=== PATIENT | male | born 1995 | race Asian ===

== ENCOUNTER → 2024-06-22 | Outpatient (CLI) | payer OTHER ==
[2024-06-22 14:17] LABS: BASO # 0.1 10^3/uL (0.0-0.2); BASO % 0.7 % (0.0-1.0); EOS # 0.1 10^3/uL (0.0-0.5); HEMATOCRIT 47.9 % (42.0-52.0); HEMOGLOBIN 16.2 g/dl (13.5-17.5); LYMPH # 1.3 10^3/uL (1.5-5.0); LYMPH % 19.4 % (24.0-44.0); MEAN CORPUSCULAR HEMOGLOBIN 30.1 pg (27.0-33.0); MEAN CORPUSCULAR HGB CONC 33.8 g/dl (32.0-36.5); MEAN CORPUSCULAR VOLUME 88.9 fl (80.0-96.0); MONO # 0.5 10^3/uL (0.0-0.8); MONO % 7.2 % (2.0-8.0); NEUTROPHILS # 4.8 10^3/uL (1.5-8.5); NEUTROPHILS % 71.3 % (36.0-66.0); PLATELET COUNT, AUTOMATED 226 10^3/uL (150-450); RED BLOOD COUNT 5.39 10^6/uL (4.30-6.10); WHITE BLOOD COUNT 6.7 10^3/uL (4.0-10.0)
[2024-06-22 14:46] LABS: ALBUMIN 4.2 G/DL (3.2-5.2); ALKALINE PHOSPHATASE 86 U/L (46-116); ALT/SGPT 21 U/L (7.0-40); AST/SGOT 14 U/L (<34); BLOOD UREA NITROGEN 11 MG/DL (9-23); CALCIUM LEVEL 9.3 MG/DL (8.5-10.1); CARBON DIOXIDE LEVEL 29 MMOL/L (20-31); CHLORIDE LEVEL 109 MMOL/L (98-107); CHOLESTEROL LEVEL 163 MG/DL (<200); CHOLESTEROL RISK RATIO 3.34 (<5); CREATININE FOR GFR 0.99 MG/DL (0.70-1.30); GLOMERULAR FILTRATION RATE > 60.0 (>60); GLUCOSE, FASTING 93 MG/DL (60-100); HDL CHOLESTEROL 48.7 MG/DL (>40); LDL CHOLESTEROL 83.5 MG/DL (<100); MAGNESIUM LEVEL 2.2 MG/DL (1.8-2.4); NON-HDL-C 114.3 MG/DL; POTASSIUM SERUM 3.9 MMOL/L (3.5-5.1); SODIUM LEVEL 142 MMOL/L (136-145); TOTAL PROTEIN 7.4 G/DL (5.7-8.2); TRIGLYCERIDES LEVEL 154 MG/DL (<150)
[2024-06-22 14:48] LABS: THYROID STIMULATING HORMONE 1.131 uIU/ML (0.55-4.78)
[2024-06-24 01:47] LABS: LDL DIRECT 97 mg/dL (<100)
== END ==
LOC: M LAB 13:43
PROVIDERS: ATTEND Internal Medicine Cardiovascular Disease
DX: Z13.220 Encounter for screening for lipoid disorders (principal); R00.2 Palpitations; I50.9 Heart failure, unspecified; I48.91 Unspecified atrial fibrillation

== ENCOUNTER → 2024-09-10 | Outpatient (CLI) | payer OTHER | LOC: M CARPUL 10:31 | PROVIDERS: ATTEND Physician Assistant | DX: R55 Syncope and collapse (principal) ==

== ENCOUNTER → 2024-10-29 | Outpatient (CLI) | payer OTHER ==
[~2024-10-29] MED LIST: METHACHOLINE KIT (6 VIAL.NEB PREMIX) INH ONE
== END ==
LOC: M CARPUL 07:51
PROVIDERS: ATTEND Physician Assistant
DX: R55 Syncope and collapse (principal); R00.2 Palpitations
CPT/HCPCS: 94070; J7674

== ENCOUNTER → 2024-11-12 | Outpatient (CLI) | payer OTHER | LOC: M RAD 06:50 | PROVIDERS: ATTEND Student in an Organized Health Care Education/Training Program | DX: R06.00 Dyspnea, unspecified (principal) ==

== ENCOUNTER 2024-12-20 13:13 | Inpatient (IN) | payer OTHER ==
[~2024-12-20] VITALS: Ht 172.7 cm; Wt 88.5 kg
[2024-12-20] MEDS ORDERED: FLUO-365 PO (13:19)
[2024-12-20 14:49] LABS: HEMATOCRIT 51.6 % (42.0-52.0); HEMOGLOBIN 17.5 g/dl (13.5-17.5); MEAN CORPUSCULAR HEMOGLOBIN 29.9 pg (27.0-33.0); MEAN CORPUSCULAR HGB CONC 33.9 g/dl (32.0-36.5); MEAN CORPUSCULAR VOLUME 88.2 fl (80.0-96.0); PLATELET COUNT, AUTOMATED 228 10^3/uL (150-450); RED BLOOD COUNT 5.85 10^6/uL (4.30-6.10); WHITE BLOOD COUNT 7.4 10^3/uL (4.0-10.0)
[2024-12-20 15:13] LABS: AMPHETAMINES LEVEL URINE NEGATIVE (NEGATIVE); BARBITURATES URINE NEGATIVE (NEGATIVE); BENZODIAZEPINES URINE NEGATIVE (NEGATIVE); CANNABINOIDS URINE NEGATIVE (NEGATIVE); COCAINE METABOLITE URINE NEGATIVE (NEGATIVE); METHADONE URINE NEGATIVE (NEGATIVE); OPIATES URINE NEGATIVE (NEGATIVE); PHENCYCLIDINE URINE NEGATIVE (NEGATIVE)
[2024-12-20 15:15] LABS: ETHYL ALCOHOL (ETHANOL) < 0.003 % (0.000-0.010)
[2024-12-20 15:17] LABS: ALBUMIN 4.2 G/DL (3.2-5.2); ALKALINE PHOSPHATASE 83 U/L (40-129); ALT/SGPT 39 U/L (7.0-40); AST/SGOT 43 U/L (<34); BILIRUBIN,DIRECT 0.3 MG/DL (<0.4); BILIRUBIN,TOTAL 0.9 MG/DL (0.3-1.2); BLOOD UREA NITROGEN 8 MG/DL (9-23); CALCIUM LEVEL 9.4 MG/DL (8.5-10.1); CARBON DIOXIDE LEVEL 25 MMOL/L (20-31); CHLORIDE LEVEL 105 MMOL/L (98-107); CREATININE FOR GFR 1.05 MG/DL (0.70-1.30); GLOMERULAR FILTRATION RATE > 60.0 (>60); GLUCOSE, FASTING 86 MG/DL (60-100); POTASSIUM SERUM 4.3 MMOL/L (3.5-5.1); SALICYLATE LEVEL < 3.0 MG/DL (<30); SODIUM LEVEL 141 MMOL/L (136-145); TOTAL PROTEIN 7.5 G/DL (5.7-8.2)
[2024-12-20 15:19] LABS: THYROID STIMULATING HORMONE 1.921 uIU/ML (0.55-4.78)
[2024-12-20] MEDS ORDERED: MAALOX 30 ML SUSP *UDC PO PRN (19:55)
[2024-12-20] MEDS ORDERED: MOM 30ML SUSPENSION UDC PO PRN (19:55)
[2024-12-20] MEDS ORDERED: IBUPROFEN 400MG TAB PO PRN (19:55)
[2024-12-20] MEDS ORDERED: ACETAMINOPHEN 325 MG TAB PO PRN (19:55)
[2024-12-20 20:48] VITALS: BP 111/59; TEMP 98; O2SAT 100
[2024-12-21 07:03] VITALS: BP 149/85; TEMP 97; O2SAT 97
[2024-12-21] MEDS ORDERED: HOME MED LIST COMPLETE! XX SCH (08:15)
[2024-12-21] MEDS: FLUoxetine 20MG CAP PO SCH (10:57)
[2024-12-21] MEDS: diphenhydrAMINE 25MG CAP PO PRN (13:20)
[2024-12-21 17:19] VITALS: BP 136/96; TEMP 97.4; O2SAT 98
[2024-12-22 06:37] VITALS: BP 152/86; TEMP 98.3; O2SAT 98
[2024-12-22 15:47] VITALS: BP 121/76; TEMP 97; O2SAT 96
[2024-12-23 06:32] VITALS: BP 126/82; TEMP 98; O2SAT 100
[2024-12-23] MEDS: NICOTINE POLACRILEX 2 MG GUM PO PRN (15:33)
[2024-12-23 15:39] VITALS: BP 144/76; TEMP 97.4; O2SAT 96
[2024-12-24 06:28] VITALS: BP 137/83; TEMP 97.5; O2SAT 98
[2024-12-24 16:08] VITALS: BP 138/94; TEMP 97.8; O2SAT 99
[2024-12-25] MEDS: FLUoxetine 10 MG CAP PO ONE (14:14)
[2024-12-25 15:28] VITALS: BP 134/87; TEMP 97.9; O2SAT 96
[2024-12-26 06:34] VITALS: BP 149/89; TEMP 97.6; O2SAT 100
[2024-12-26] MEDS: FLUoxetine 10 MG CAP PO SCH (08:59)
[2024-12-26 16:44] VITALS: BP 132/88; TEMP 97.4; O2SAT 97
[2024-12-26] MEDS: traZODone 50 MG TAB PO PRN (22:16)
[2024-12-27 15:30] VITALS: BP 132/83; TEMP 97; O2SAT 100
[2024-12-28] MEDS ORDERED: FLUO-365 PO (05:41)
[2024-12-28] MEDS ORDERED: HYDR-3363 PO (05:41)
[2024-12-28 06:53] VITALS: BP 126/90; TEMP 97; O2SAT 99
[2024-12-28] MEDS: FLUoxetine 20MG CAP PO SCH (08:05)
== END 2024-12-28 10:38 | disposition home or self-care (01) | DRG 885 ==
LOC: M ED 13:13 → M ED INP 19:54 → M PSY 20:59
PROVIDERS: ADMIT Psychiatry & Neurology Neurology; ATTEND Psychiatry & Neurology Neurology
DX: F33.1 Major depressive disorder, recurrent, moderate (principal); R45.851 Suicidal ideations; F41.9 Anxiety disorder, unspecified

== ENCOUNTER → 2025-02-27 | Outpatient (REF) | payer OTHER ==
[~2025-02-27] MED LIST changes: +FLUO-365 PO; +HYDR-3363 PO; -METHACHOLINE KIT (6 VIAL.NEB PREMIX) INH ONE
== END ==
LOC: M SMT 13:27
PROVIDERS: ATTEND Urology
DX: Z30.2 Encounter for sterilization (principal)

== ENCOUNTER → 2025-04-24 | Outpatient (REF) | payer OTHER ==
[2025-04-24 11:10] LABS: SEMEN APPEARANCE OPAQUE (OPAQUE); SEMEN VISCOSITY LIQUID (LIQUID); SEMEN VOLUME 1.2 ml (2.0-5.0); WBC CONCENTRATION <=1 M/ml (<=1 M/ml)
== END ==
LOC: M SMT 10:30
PROVIDERS: ATTEND Urology
DX: Z30.8 Encounter for other contraceptive management (principal)

== ENCOUNTER → 2025-08-06 | Outpatient (REF) | payer OTHER ==
[~2025-08-06] MED LIST changes: +IBUP-354 PO; +METH-1165 PO
== END ==
LOC: M LAB REF 15:09
PROVIDERS: ATTEND Nurse Practitioner Family
DX: R14.0 Abdominal distension (gaseous) (principal); R19.4 Change in bowel habit

== ENCOUNTER 2025-08-08 00:14 | Emergency (ER) | payer OTHER ==
[~2025-08-08] VITALS: Ht 172.7 cm; Wt 81.8 kg
[~2025-08-08 00:14] MED LIST changes: -IBUP-354 PO; -METH-1165 PO
[2025-08-08] MEDS: LIDOCAINE 5% PATCH TD ONE (05:51)
[2025-08-08] MEDS: ACETAMINOPHEN 500 MG TAB PO ONE (05:51)
[2025-08-08 06:47] LABS: APPEARANCE, URINE CLEAR (CLEAR); BACTERIA, URINE AUTO NEGATIVE (NEGATIVE); BILIRUBIN, URINE AUTO NEGATIVE (NEGATIVE); BLOOD, URINE BLOOD NEGATIVE (NEGATIVE); GLUCOSE, URINE (UA) AUTO NEGATIVE (NEGATIVE); KETONE, URINE AUTO NEGATIVE (NEGATIVE); LEUKOCYTE ESTERASE, URINE AUTO NEGATIVE (NEGATIVE); MUCUS, URINE SMALL (NEGATIVE); NITRITE, URINE AUTO NEGATIVE (NEGATIVE); PROTEIN, URINE AUTO 1+ mg/dL (NEGATIVE); RBC, URINE AUTO 1 /HPF (0-3); SPECIFIC GRAVITY URINE AUTO 1.030 (1.002-1.035); SQUAMOUS EPITHELIAL CELL UR AU 0 /HPF (0-6); UROBILINOGEN, URINE AUTO 2.0 mg/dL (0.0-2.0); WBC, URINE AUTO 3 /HPF (0-3)
[2025-08-08] MEDS ORDERED: METH-1165 PO (07:24)
[2025-08-08] MEDS ORDERED: IBUP-354 PO (07:24)
[2025-08-08] MEDS: KETOROLAC 30 MG/ML 1 ML VIAL IV ONE (07:35)
[2025-08-08 07:55] VITALS: BP 109/74; TEMP 97.8; O2SAT 96
== END 2025-08-08 08:02 | disposition home or self-care (01) ==
LOC: M ED 00:14
DX: M54.50 Low back pain, unspecified (principal); Z79.899 Other long term (current) drug therapy
CPT/HCPCS: 72110; 81001; 96374; 99284; J1885

== ENCOUNTER 2025-08-21 20:53 | Emergency (ER) | payer OTHER ==
[~2025-08-21] VITALS: Ht 172.7 cm; Wt 81.8 kg
[~2025-08-21 20:53] MED LIST changes: +IBUP-354 PO; +METH-1165 PO
[2025-08-22] MEDS: IBUPROFEN 600 MG TAB PO ONE
[2025-08-22 00:42] VITALS: BP 127/83; TEMP 98.4; O2SAT 96
== END 2025-08-22 00:44 | disposition home or self-care (01) ==
LOC: M ED 20:53
DX: T81.31XA Disruption of external operation (surgical) wound, not elsewhere classified, initial encounter (principal); J45.909 Unspecified asthma, uncomplicated; F32.A Depression, unspecified